=== PATIENT | male | born 1990 | race Caucasian/White ===

== ENCOUNTER 2021-10-14 07:18 | Emergency (ER) | payer OTHER ==
[2021-10-14] MEDS ORDERED: Acetaminophen 500 MG Tab PO ONE (07:35)
[2021-10-14] MEDS ORDERED: Ibuprofen 600 MG Tab PO ONE (07:35)
[2021-10-14 08:33] LABS: CORONAVIRUS COVID-19 NAA NEGATIVE (NEGATIVE)
[2021-10-14 09:16] LABS: INFLUENZA A NAA NEGATIVE (NEGATIVE); INFLUENZA B NAA NEGATIVE (NEGATIVE)
== END 2021-10-14 10:03 | disposition home or self-care (01) ==
LOC: MW.ED 07:18
DX: J40 Bronchitis, not specified as acute or chronic (principal); Z88.5 Allergy status to narcotic agent; Z20.822 Contact with and (suspected) exposure to COVID-19
CPT/HCPCS: 0240U; 71045; 99283; A9270; 99282